=== PATIENT | male | born 1970 | race Caucasian/White ===

== ENCOUNTER 2017-08-12 17:01 | Inpatient (IN) | payer OTHER ==
[~2017-08-12] VITALS: Ht 188 cm; Wt 87.6 kg
[2017-08-12 17:06] VITALS: BP 155/101; PULSE 91; RESP 14; TEMP 98.5; O2SAT 97
[2017-08-12] MEDS ORDERED: VANCOMYCIN INJ 1,000 MG in SODIUM CHLOR 0.9% 250 ML INJ 250 ML IV ONE (17:45)
[2017-08-12] MEDS ORDERED: PIPERACIL-TAZO 3.375 GM PREMIX 50 ML IV ONE (17:45)
[2017-08-12] MEDS ORDERED: CETI10TA71 PO (18:05)
[2017-08-12] MEDS ORDERED: CETI10 (18:05)
--- NOTE | 2017-08-12 18:12 | PD ---
HPI Chief Complaint: Skin Problem Time Seen by Provider: 17:30 Travel History International Travel<30 days: No Contact w/Intl Traveler<30days: No Traveled to known affect area: No History of Present Illness HPI 46-year-old male that presents to the ED for evaluation of infection to his right foot. Patient was seen by his pattern layout worker Dr. Dias who recommended that patient comes here to get admitted for IV antibiotics, MRI and possible surgical options. Patient apparently had a joint replacement on the right second toe last year by the same doctor. Apparently per patient he was doing fine when his wound that he is an open up. Per patient he is to follow with Dr. Dias and he has been noticing redness and purulence coming from the wound. Dr. Dias saw him today and was very concerned and wanted him to come here to get admitted. Patient comes in actually with a prescription from Dr. Dias stating that this once the patient admitted to medicine and started on IV antibiotics as well as labs and MRI with a consult to her. Patient himself denies any other medical issues. No history of diabetes or immunosuppression. No injuries or trauma. No antibiotics have been started. Per patient himself he did not want to come but Dr. Dias insisted. Patient states that his pain is 2 out of 10. No fevers chills or sweats. No other medical issues. PFSH Social History Tobacco Use: No Allergies-Medications (Allergen,Severity, Reaction): Coded Allergies: No Known Allergies (Unverified , 08/12/17) Reported Meds & Prescriptions Reported Meds & Active Scripts Active Reported All Day Allergy (Cetirizine HCl) 10 Mg Tab 10 Mg PO DAILY Review of Systems Except as stated in HPI: all other systems reviewed are Neg Physical Exam Narrative GENERAL: SKIN: Warm and dry. HEAD: Atraumatic. Normocephalic. EYES: Pupils equal and round. No scleral icterus. No injection or drainage. ENT: No nasal bleeding or discharge. Mucous membranes pink and moist. Tongue is midline. No uvula deviation. NECK: Trachea midline. No JVD. CARDIOVASCULAR: Regular rate and rhythm. No murmurs, S3, S4. RESPIRATORY: No accessory muscle use. Clear to auscultation. Breath sounds equal bilaterally. GASTROINTESTINAL: Abdomen soft, non-tender, nondistended. Hepatic and splenic margins not palpable. MUSCULOSKELETAL: Extremities without clubbing, cyanosis, or edema. No obvious deformities. Full range of motion of the upper and lower extremities bilaterally. 2+ pulses bilaterally. Patient does have what appears to be a open wound to the dorsal aspect of the right second metacarpal area. Purulence noted. Erythematous. Bone is seen. Nontender. NEUROLOGICAL: Awake and alert. No obvious cranial nerve deficits. Motor grossly within normal limits. Five out of 5 muscle strength in the arms and legs. Normal speech. PSYCHIATRIC: Appropriate mood and affect; insight and judgment normal. Data Data Last Documented VS Vital Signs Date Time Temp Pulse Resp B/P (MAP) Pulse Ox O2 Delivery O2 Flow Rate FiO2 08/12/17 19:15 85 16 145/84 (104) 97 Room Air 08/12/17 17:06 98.5 Orders Orders Complete Blood Count With Diff (08/12/17 17:37) Basic Metabolic Panel (Bmp) (08/12/17 17:37) Prothrombin Time / Inr (Pt) (08/12/17 17:37) Act Partial Throm Time (Ptt) (08/12/17 17:37) Blood Culture (08/12/17 17:37) C-Reactive Protein (Crp) (08/12/17 17:37) Westergren Sedimentation Rate (08/12/17 17:37) Magnesium (Mg) (08/12/17 17:37) Wound Culture And Gram Stain (08/12/17 17:37) Iv Access Insert/Monitor (08/12/17 17:37) Piperacil-Tazo 3.375 Gm Premix (Zosyn 3. (08/12/17 17:45) Vancomycin Inj (Vancomycin Inj) (08/12/17 17:45) Admit Order (Ed Use Only) (08/12/17 19:45) Mri Foot W&W/O Contrast (08/12/17 ) Labs Laboratory Tests Test 08/12/17 18:10 08/12/17 18:48 Erythrocyte Sedimentation Rate 7 mm/hr White Blood Count 11.9 TH/MM3 Red Blood Count 5.18 MIL/MM3 Hemoglobin 15.8 GM/DL Hematocrit 46.0 % Mean Corpuscular Volume 88.8 FL Mean Corpuscular Hemoglobin 30.5 PG Mean Corpuscular Hemoglobin Concent 34.3 % Red Cell Distribution Width 13.6 % Platelet Count 168 TH/MM3 Mean Platelet Volume 9.8 FL Neutrophils (%) (Auto) 74.8 % Lymphocytes (%) (Auto) 16.9 % Monocytes (%) (Auto) 7.2 % Eosinophils (%) (Auto) 0.6 % Basophils (%) (Auto) 0.5 % Neutrophils # (Auto) 8.9 TH/MM3 Lymphocytes # (Auto) 2.0 TH/MM3 Monocytes # (Auto) 0.9 TH/MM3 Eosinophils # (Auto) 0.1 TH/MM3 Basophils # (Auto) 0.1 TH/MM3 CBC Comment DIFF FINAL Differential Comment Prothrombin Time 10.7 SEC Prothromb Time International Ratio 1.1 RATIO Activated Partial Thromboplast Time 26.0 SEC Blood Urea Nitrogen 13 MG/DL Creatinine 0.89 MG/DL Random Glucose 93 MG/DL Calcium Level 9.4 MG/DL Magnesium Level 2.2 MG/DL Sodium Level 141 MEQ/L Potassium Level 3.7 MEQ/L Chloride Level 107 MEQ/L Carbon Dioxide Level 25.5 MEQ/L Anion Gap 9 MEQ/L Estimat Glomerular Filtration Rate 91 ML/MIN C-Reactive Protein LESS THAN 0.29 MG/DL MDM Medical Decision Making Medical Screen Exam Complete: Yes Emergency Medical Condition: Yes Medical Record Reviewed: Yes Interpretation(s) CBC & BMP Diagram 08/12/17 18:48 Calcium Level 9.4, Magnesium Level 2.2 Differential Diagnosis Osteomyelitis versus cellulitis versus postsurgical complication Narrative Course 46-year-old male that presents to the ED for evaluation of infection to his right foot. Patient was properly examined and was found to have signs and symptoms consistent with osteomyelitis. Patient was sent here for admission as patient does have surgery and likely need the joint artifact removed. Labs and imaging were ordered by me. Patient was started on IV antibiotics. Patient understands reasons to be admitted. Case was discussed with the residents who agreed to admission. Patient was admitted. Diagnosis Primary Impression: Osteomyelitis Qualified Codes: M86.9 - Osteomyelitis, unspecified Admitting Information Admitting Physician Requests: Admit Monster Colvin Aug 12, 2017 18:12
[2017-08-12 18:56] LABS: AUTOMATED NEUTROPHIL # 8.9 TH/MM3 (1.8-7.7); BASOPHIL # 0.1 TH/MM3 (0-0.2); BASOPHIL % 0.5 % (0.0-2.0); EOSINOPHIL # 0.1 TH/MM3 (0-0.4); EOSINOPHIL % 0.6 % (0.0-4.0); HEMOGLOBIN 15.8 GM/DL (13.0-17.0); LYMPH % 16.9 % (9.0-44.0); MEAN CELL VOLUME 88.8 FL (80.0-100.0); MEAN CORPUSCULAR HEMOGLOBIN 30.5 PG (27.0-34.0); MEAN CORPUSCULAR HGB CONC 34.3 % (32.0-36.0); MEAN PLATELET VOLUME 9.8 FL (7.0-11.0); MONO % 7.2 % (0.0-8.0); MONOCYTE # 0.9 TH/MM3 (0-0.9); NEUT % 74.8 % (16.0-70.0); PLATELET COUNT 168 TH/MM3 (150-450); RED BLOOD COUNT 5.18 MIL/MM3 (4.50-5.90); RED CELL DISTRIBUTION WIDTH 13.6 % (11.6-17.2); WHITE BLOOD COUNT 11.9 TH/MM3 (4.0-11.0)
[2017-08-12 19:15] VITALS: BP 145/84; PULSE 85; RESP 16; O2SAT 97
[2017-08-12 19:15] LABS: INTERNATIONAL NORMALIZED RATIO 1.1 RATIO; PROTHROMBIN TIME - PATIENT 10.7 SEC (9.8-11.6)
[2017-08-12 19:19] LABS: BICARBONATE 25.5 MEQ/L (21.0-32.0); BLOOD UREA NITROGEN 13 MG/DL (7-18); C-REACTIVE PROTEIN LESS THAN 0.29 MG/DL (0.00-0.30); CALCIUM 9.4 MG/DL (8.5-10.1); CHLORIDE 107 MEQ/L (98-107); CREATININE 0.89 MG/DL (0.60-1.30); GLOMERULAR FILTRATION RATE 91 ML/MIN (>89); GLUCOSE,RANDOM 93 MG/DL (74-106); MAGNESIUM 2.2 MG/DL (1.5-2.5); SODIUM (NA) 141 MEQ/L (136-145)
[2017-08-12 20:00] VITALS: BP 131/88; PULSE 72; RESP 18; TEMP 95.9; O2SAT 97
[2017-08-12] MEDS ORDERED: GADODIAMIDE PF 287 MG/ML 5 ML VIAL (for RAD MRI) IV PUSH ONE (20:12)
[2017-08-12] MEDS ORDERED: CETIRIZINE HCL 10 MG TAB PO ONE (20:30)
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
--- NOTE | 2017-08-12 20:49 | RADRPT ---
EXAM DATE/TIME: 08/12/2017 19:46 [facility] COMPARISON: No previous studies available for comparison. INDICATIONS : Osteomyelitis. Non-healing wound anterior surface of right foot. CONTRAST: 19 cc Omniscan (gadodiamide) IV MEDICAL HISTORY : None. SURGICAL HISTORY : Right foot, second digit. Hernia. Right leg. Left bicep tendon. Jaw. ENCOUNTER: Subsequent ACUITY: 1 day PAIN SCORE: 3/10 LOCATION: Right foot TECHNIQUE: Multiplanar, multisequence MRI examination was performed without contrast and after the intravenous a dministration of gadolinium. FINDINGS: There is no plain film correlation. There appears to be a second phalangeal joint. There is an ulcer on the dorsum of the foot overlying the prosthesis. There is surrounding edema and soft tissue enhanc ement characteristic of a cellulitis. There is a mild marrow edema and enhancement adjacent to the pr oximal aspect of the prosthesis at the second metatarsal shaft and in the proximal phalanx of the sec ond toe. No other marrow signal abnormalities are identified within the foot. CONCLUSION: 1. Postoperative placement of prosthesis across the second metatarsophalangeal joint. There is an ulc eration on the dorsum of the foot overlying the prosthesis and there is fairly extensive cellulitis s urrounding the second toe and second metatarsal. There are focal marrow signal abnormalities adjacent to the proximal and distal aspect of the prosthesis. It is unclear if this is related to postsurgica l changes or early osteomyelitis. Baudilio Carrillo MD on August 12, 2017 at 20:42 Board Certified Radiologist. This report was verified electronically.
[2017-08-12] MEDS ORDERED: LACTULOSE SYRUP 20 GM/30 ML CUP PO PRN (21:30)
[2017-08-12] MEDS ORDERED: MAGNESIUM HYDROXIDE SUSP 30 ML CUP PO PRN (21:30)
[2017-08-12] MEDS ORDERED: SENNOSIDES 8.6 MG TAB PO PRN (21:30)
[2017-08-12] MEDS ORDERED: BISACODYL 10 MG SUPP RECTAL PRN (21:30)
[2017-08-12] MEDS ORDERED: NALOXONE HCL 0.4 MG/ML AMP IV PUSH PRN (21:30)
[2017-08-12] MEDS ORDERED: SODIUM CHLORIDE 0.9% FLUSH 10 ML FLUSH IV FLUSH PRN (21:30)
[2017-08-12] MEDS: CETIRIZINE HCL 10 MG TAB PO SCH (21:45)
[2017-08-12] MEDS: SODIUM CHLOR 0.9% 1000 ML INJ 1,000 ML IV SCH (23:23)
[2017-08-13] VITALS: BP 135/87; PULSE 70; RESP 18; TEMP 96.5; O2SAT 96
[2017-08-13] MEDS: SODIUM CHLOR 0.9% 1000 ML INJ 1,000 ML IV SCH (04:53)
[2017-08-13 06:41] LABS: AUTOMATED NEUTROPHIL # 4.3 TH/MM3 (1.8-7.7); BASOPHIL # 0.1 TH/MM3 (0-0.2); BASOPHIL % 0.9 % (0.0-2.0); EOSINOPHIL # 0.1 TH/MM3 (0-0.4); EOSINOPHIL % 1.8 % (0.0-4.0); HEMATOCRIT 41.6 % (39.0-51.0); HEMOGLOBIN 14.2 GM/DL (13.0-17.0); LYMPH % 27.3 % (9.0-44.0); LYMPHOCYTE # 1.9 TH/MM3 (1.0-4.8); MEAN CELL VOLUME 88.8 FL (80.0-100.0); MEAN CORPUSCULAR HEMOGLOBIN 30.4 PG (27.0-34.0); MEAN CORPUSCULAR HGB CONC 34.2 % (32.0-36.0); MEAN PLATELET VOLUME 9.6 FL (7.0-11.0); MONO % 8.3 % (0.0-8.0); MONOCYTE # 0.6 TH/MM3 (0-0.9); NEUT % 61.7 % (16.0-70.0); PLATELET COUNT 149 TH/MM3 (150-450); RED BLOOD COUNT 4.69 MIL/MM3 (4.50-5.90); RED CELL DISTRIBUTION WIDTH 13.6 % (11.6-17.2); WHITE BLOOD COUNT 6.9 TH/MM3 (4.0-11.0)
[2017-08-13 07:00] LABS: BICARBONATE 24.9 MEQ/L (21.0-32.0); BLOOD UREA NITROGEN 12 MG/DL (7-18); C-REACTIVE PROTEIN LESS THAN 0.29 MG/DL (0.00-0.30); CALCIUM 8.6 MG/DL (8.5-10.1); CHLORIDE 109 MEQ/L (98-107); CREATININE 0.85 MG/DL (0.60-1.30); GLOMERULAR FILTRATION RATE 96 ML/MIN (>89); GLUCOSE,RANDOM 93 MG/DL (74-106); SODIUM (NA) 141 MEQ/L (136-145)
[2017-08-13 08:00] VITALS: BP 131/86; PULSE 72; RESP 18; TEMP 98.4; O2SAT 95
[2017-08-13] MEDS: CETIRIZINE HCL 10 MG TAB PO SCH (08:27)
[2017-08-13] MEDS: SODIUM CHLORIDE 0.9% FLUSH 10 ML FLUSH IV FLUSH SCH ×2 (08:27→20:14)
[2017-08-13] MEDS ORDERED: Vancomycin Consult Pharmacy 1 EA OTHER SCH (09:45)
[2017-08-13] MEDS: CEFEPIME INJ 2,000 MG in SODIUM CHLORIDE 0.9% INJ 100 ML IV SCH ×2 (11:17→22:10)
--- NOTE | 2017-08-13 11:58 | HHI.FPPN ---
Subjective Remarks No acute issues overnight. Vitals are stable, patient remains afebrile. He denies any chest pain, shortness of breath, fever, chills, nausea, or vomiting. He has started having an upset stomach and diarrhea since starting the antibiotics. He notes that he is scheduled for surgery tomorrow. (Liliane Schaefer MD, R3) Objective Vitals Vital Signs Date Time Temp Pulse Resp B/P (MAP) Pulse Ox O2 Delivery O2 Flow Rate FiO2 08/13/17 08:00 98.4 72 18 131/86 (101) 95 08/13/17 00:00 96.5 70 18 135/87 (103) 96 08/12/17 22:06 08/12/17 20:00 95.9 72 18 131/88 (102) 97 08/12/17 19:15 85 16 145/84 (104) 97 Room Air 08/12/17 17:06 98.5 91 14 155/101 (119) 97 Room Air I/O 08/12/17 08/12/17 08/12/17 08/13/17 08/13/17 08/13/17 07:00 15:00 23:00 07:00 15:00 23:00 Intake Total 890 ml 1000 ml Balance 890 ml 1000 ml Intake Oral 590 ml 0 ml IV Total 300 ml 1000 ml # Voids 0 # Bowel Movements 0 (Liliane Schaefer MD, R3) Result Diagram: 08/13/17 0605 08/13/17 0605 Imaging Last Impressions Foot MRI 08/12/17 0000 Signed Impressions: Service Date/Time: Saturday, August 12, 2017 19:46 - CONCLUSION: 1. Postoperative placement of prosthesis across the second metatarsophalangeal joint. There is an ulceration on the dorsum of the foot overlying the prosthesis and there is fairly extensive cellulitis surrounding the second toe and second metatarsal. There are focal marrow signal abnormalities adjacent to the proximal and distal aspect of the prosthesis. It is unclear if this is related to postsurgical changes or early osteomyelitis. Baudilio Carrillo MD Objective Remarks GENERAL: This is a well-nourished, well-developed patient, in no apparent distress. SKIN: No rashes, Cool and dry. Discoloration along medial aspect left leg, chronic per patient HEAD: Atraumatic. Normocephalic. No temporal or scalp tenderness. EYES: Pupils equal round and reactive. Extraocular motions intact. No scleral icterus. No injection or drainage. ENT: Nose without bleeding, purulent drainage or septal hematoma. Throat without erythema, tonsillar hypertrophy or exudate. Uvula midline. Airway patent. NECK: Trachea midline. No JVD or lymphadenopathy. Supple, nontender, no meningeal signs. CARDIOVASCULAR: Normal S1-S2 without murmurs, gallops, or rubs. RESPIRATORY: Clear to auscultation. Breath sounds equal bilaterally. No wheezes , rales, or rhonchi. GASTROINTESTINAL: Abdomen soft, non-tender, nondistended. No hepato-splenomegaly , or palpable masses. No guarding. Abdomen with scarring from resendez that patient experiences a kid. MUSCULOSKELETAL: Extremities without clubbing, cyanosis, or edema. No calf tenderness BL. Negative Homans sign bilaterally. Normal sensation of feet BL, slight diminished sensation of second toe on Right foot. +2 DP pulses BL. Deep wound of approximately 2 cm x 1 cm diameter on the dorsum aspect of the foot above second metatarsal of right foot. Whitish yellow pus noted in wound and foul smell from wound appreciated during foot exam. Minimal-localized erythema around wound, no swelling noted. Mild pain to palpation around the wound area. NEUROLOGICAL: Awake and alert. Cranial nerves II through XII intact. Motor and sensory grossly within normal limits. Normal speech. (Liliane Schaefer MD, R3) A/P Assessment and Plan Patient is a 46-year-old male with past medical history arthritis and BL venous insufficiency who presented to the ED due to right foot wound infection. Patient was sent to ED by his career development coordinator, Dr. Dias due to concern for osteomyelitis. Patient admitted for further evaluation and treatment. Discharge Planning Pending surgery by podiatry, likely in the next several days. (Liliane Schaefer MD, R3) Attending Attestation Table rounds with DR Schaefer, Dr Reeves, Dr Aparicio and Dr Resendez were performed this morning A detailed discussion regarding patients admission and hospital course was reviewed with Resident team Patient was seen and examined with team Agree with contents in above note SeeAssessment and Plan (Sony Henderson MD) Problem List: (1) Foot infection ICD Codes: L08.9 - Local infection of the skin and subcutaneous tissue, unspecified Status: Acute Plan: Patient is status post prosthesis replacement of second metatarsal joint of right foot, operation done by Dr. Dias in 03/2017 -On admission patient was found to be afebrile, slightly elevated blood pressures in the 140/80, HR- 85, O2 sat WNL on RA. Patient has not toxic appearing. Slight leukocytosis of 11.9. ESR-7, CRP- less than 0.29. Pain right foot pain 5/10. -s/p Vanc and Zosyn. -MRI of the right foot showed: Ulceration of the dorsum of the foot overlying the prosthesis and extensive cellulitis surrounding the second toe and second metatarsal. Focal marrow signal abnormalities adjacent to the proximal and distal aspect of the prosthesis. Unclear if related to postsurgical changes or early osteomyelitis. 08/12 blood cultures- no growth in 1 day -Podiatry referral to Dr. Dias- plan for surgery tomorrow -NPO after midnight due to surgical intervention tomorrow -f/u blood cx and wound cx -Vancomycin and Cefepime to cover for infection (started 08/13) - Consult infectious disease (2) Nutrition, metabolism, and development symptoms ICD Codes: R63.8 - Other symptoms and signs concerning food and fluid intake Plan: Fluids: DC fluids while tolerating PO Electrolytes: WNL, replete as needed Nutrition: NPO after midnight DVT ppx : SCDs (Liliane Schaefer MD, R3) Liliane Schaefer MD, R3 Aug 13, 2017 11:58 Sony Henderson MD Aug 13, 2017 16:31
[2017-08-13 12:00] VITALS: BP 150/99; PULSE 76; RESP 17; TEMP 97.9; O2SAT 97
[2017-08-13] MEDS: VANCOMYCIN INJ 1,500 MG in SODIUM CHLORID 0.9% 500 ML INJ 500 ML IV SCH ×2 (12:33→23:39)
--- NOTE | 2017-08-13 15:38 | MB ---
cc: LORIN ESPINOZA DATE OF CONSULTATION: 08/13/2017. REASON FOR CONSULTATION: Right second MPJ postoperative infection. HISTORY OF PRESENT ILLNESS: Mr. West is a 46-year-old male patient well-known to me. He had a Silastic implant placed in the second MPJ for a painful arthritis. He also had a hammertoe correction at that time. The patient had a very small surgical dehiscence at the incision site in May. He cancelled multiple appointments and did not follow up in my office for approximately 6 weeks despite attempted phone calls and re-appointments. When the patient was seen in my office yesterday, the previous small digit site was now a large gaping wound with purulent drainage and the Silastic implant was visible through the wound. Despite a lack of cellulitis, I had extreme concern for possible osteomyelitis and an urgency to remove the implant. The patient was advised to present to the emergency room with written instructions from my office that day for admission. PAST MEDICAL HISTORY: His past medical history includes: 1. Bilateral venous insufficiency. 2. Osteoarthritis. 3. Diabetes mellitus. PAST SURGICAL HISTORY: 1. Left biceps tendon repair in June of this year by Dr. Colvin. 2. An unknown right ankle surgery. MEDICATIONS: Please see the list. ALLERGIES: NO KNOWN DRUG ALLERGIES. FAMILY HISTORY: Noncontributory. SOCIAL HISTORY: The patient lives at home with family. He quit smoking 15 years ago. Drinks socially. Smokes marijuana occasionally. Denies any other illicit drug abuse. PHYSICAL EXAMINATION: On physical exam, the patient has palpable dorsalis pedis and posterior tibial pulses. Capillary fill time is less than 3 seconds. Gross sensation is intact but appears to be diminished. The dorsal aspect of the right second MPJ with a full thickness ulceration of 1 cm x 0.8 cm x 0.75. There is seropurulent drainage with malodor from the wound. The wound is partially granular and partially open to the level of the implant. No erythema surrounding the ulceration. Tenderness noted with evaluation. ASSESSMENT AND PLAN: 1. Presumably infected hardware right second MPJ. - NPO after midnight. - Plan for surgical explantation of the implant, bone biopsies and insertion of antibiotic beads at surgery tomorrow. - Regardless of biopsy results given the extent of the patient's erosion at the surgical site, a PICC line would likely be valuable for shelter IV antibiotics of two to six weeks. Thank you for the continued care of this patient. Lorin NULL/RONALDO /1:00 PM /3:25 PM MTDNahed
[2017-08-13 16:00] VITALS: BP 146/96; PULSE 82; RESP 18; TEMP 97.5; O2SAT 98
[2017-08-13] MEDS ORDERED: VANCOMYCIN INJ 1,000 MG in SODIUM CHLOR 0.9% 250 ML INJ 250 ML IV SCH (17:45)
--- NOTE | 2017-08-13 19:40 | HHI.PR ---
Addendum to Inpatient Note Additional Information Pt seen around today 16 00 full note to Alexandra Espinoza MD Aug 13, 2017 19:40
--- NOTE | 2017-08-13 19:40 | PD.ID.CON ---
History of Present Illness Service ID Consult Requested By Dr Sotelo Reason for Consult R foot osteo Primary Care Physician Wilson Aparicio M.D. Diagnoses: History of Present Illness 46 yo with R foot prosthetic 2nd metatarsal joint implanted 4 months ago developped chronic ulceration that never healed Sp 2 short course of iral abx No fever, nomleukocytosis, no PVD or DM MRI cw osteomyelitis For prostesis removal, debricement tomorrow co some loose BMs Review of Systems Gastrointestinal: COMPLAINS OF: Diarrhea Except as stated in HPI: all other systems reviewed are Neg Past Family Social History Allergies: Coded Allergies: No Known Allergies (Unverified , 08/12/17) Active Ordered Medications Medications where reviewed in EMR Antibiotics Include: vanco cefepime Physical Exam Vital Signs Vital Signs Date Time Temp Pulse Resp B/P (MAP) Pulse Ox O2 Delivery O2 Flow Rate FiO2 08/13/17 16:00 97.5 82 18 146/96 (113) 98 08/13/17 12:00 97.9 76 17 150/99 (116) 97 08/13/17 08:00 98.4 72 18 131/86 (101) 95 08/13/17 00:00 96.5 70 18 135/87 (103) 96 08/12/17 22:06 08/12/17 20:00 95.9 72 18 131/88 (102) 97 Physical Exam CONSTITUTIONAL/GENERAL: This is an adequately nourished patient, in no apparent distress. TUBES/LINES/DRAINS: SKIN: No jaundice, rashes, or lesions. Skin temperature appropriate. Not diaphoretic. HEAD: Atraumatic. Normocephalic. EYES: Pupils equal and round and reactive. Extraocular motions intact. No scleral icterus. No injection or drainage. Fundi not examined. ENT: Hearing grossly normal. Nose without bleeding or purulent drainage. Throat without visible erythema, exudates, masses, or lesions. N CARDIOVASCULAR: Regular rate and rhythm without murmurs, gallops, or rubs. No JVD. Peripheral pulses symmetric. RESPIRATORY/CHEST: Symmetric, unlabored respirations. Clear to auscultation. Breath sounds equal bilaterally. No wheezes, rales, or rhonchi. GASTROINTESTINAL: Abdomen soft, non-tender, nondistended. No hepato-splenomegaly , or palpable masses. No guarding. Bowel sounds present. GENITOURINARY: Without palpable bladder distension MUSCULOSKELETAL: Extremities without clubbing, cyanosis, or edema. No joint tenderness or effusion noted. No calf tenderness. No mottling or clubbing. STATUS LOCALIS: open deep wound with esposed tendon, joint in the bed with odorless serosangious d/c and mild surrounding erythema NEUROLOGICAL: Awake and alert. Motor and sensory grossly within normal limits. Follows commands. Cognitively sharp. Moves all extremities. PSYCHIATRIC: No obvious anxiety/depression. no apparent hallucinations or other psychotic thought process. Laboratory Laboratory Tests Test 08/13/17 06:05 White Blood Count 6.9 Red Blood Count 4.69 Hemoglobin 14.2 Hematocrit 41.6 Mean Corpuscular Volume 88.8 Mean Corpuscular Hemoglobin 30.4 Mean Corpuscular Hemoglobin Concent 34.2 Red Cell Distribution Width 13.6 Platelet Count 149 Mean Platelet Volume 9.6 Neutrophils (%) (Auto) 61.7 Lymphocytes (%) (Auto) 27.3 Monocytes (%) (Auto) 8.3 Eosinophils (%) (Auto) 1.8 Basophils (%) (Auto) 0.9 Neutrophils # (Auto) 4.3 Lymphocytes # (Auto) 1.9 Monocytes # (Auto) 0.6 Eosinophils # (Auto) 0.1 Basophils # (Auto) 0.1 CBC Comment DIFF FINAL Differential Comment Blood Urea Nitrogen 12 Creatinine 0.85 Random Glucose 93 Calcium Level 8.6 Sodium Level 141 Potassium Level 3.9 Chloride Level 109 Carbon Dioxide Level 24.9 Anion Gap 7 Estimat Glomerular Filtration Rate 96 C-Reactive Protein LESS THAN 0.29 Date/Time Source Procedure Growth Status 08/12/17 18:10 Blood Peripheral Aerobic Blood Culture - Preliminary NO GROWTH IN 1 DAY Resulted 08/12/17 18:10 Blood Peripheral Anaerobic Blood Culture - Preliminary NO GROWTH IN 1 DAY Resulted 08/12/17 18:11 Wound Foot Gram Stain - Final Resulted 08/12/17 18:11 Wound Culture - Preliminary Gram Negative Toni Resulted Result Diagram: 08/13/1705 08/13/1705 Imaging Last Impressions Foot MRI 08/12/17 0000 Signed Impressions: Service Date/Time: Saturday, August 12, 2017 19:46 - CONCLUSION: 1. Postoperative placement of prosthesis across the second metatarsophalangeal joint. There is an ulceration on the dorsum of the foot overlying the prosthesis and there is fairly extensive cellulitis surrounding the second toe and second metatarsal. There are focal marrow signal abnormalities adjacent to the proximal and distal aspect of the prosthesis. It is unclear if this is related to postsurgical changes or early osteomyelitis. Baudilio Carrillo MD Assessment and Plan Assessment and Plan Prosthetic joint infection, osteomyelitis R foot, aw 2nd MT joint prosthesis - growing GNB REC's: cont current abx will folow path, clx - add AFB to op clx Alexandra James MD Aug 13, 2017 19:40
[2017-08-13 20:31] VITALS: BP 130/73; PULSE 82; RESP 20; TEMP 97.4; O2SAT 98
[2017-08-13] MEDS ORDERED: LACTATED RINGER'S 1000 ML IV PRN (23:30)
[2017-08-14 00:15] VITALS: BP 122/79; PULSE 78; RESP 20; TEMP 97.4; O2SAT 98
[2017-08-14] MEDS: CETIRIZINE HCL 10 MG TAB PO SCH (07:26)
[2017-08-14] MEDS: SODIUM CHLORIDE 0.9% FLUSH 10 ML FLUSH IV FLUSH SCH ×2 (07:26→19:25)
[2017-08-14] MEDS ORDERED: BUPIVACAINE HCL PF 0.5% 30 ML VIAL ONE (07:26)
[2017-08-14] MEDS ORDERED: TOBRAMYCIN 1200 MG VIAL (for ortho/sterile core) OTHER ONE (07:47)
[2017-08-14] MEDS ORDERED: GENTAMICIN SULFATE 80 MG/2 ML VIAL ONE (07:49)
[2017-08-14] MEDS ORDERED: VANCOMYCIN HCL 1000 MG VIAL ONE (07:49)
[2017-08-14 08:00] VITALS: BP 132/87; PULSE 72; RESP 18; TEMP 98.4; O2SAT 97
[2017-08-14] MEDS ORDERED: MORPHINE SULFATE 2 MG/ML INJ IV PUSH PRN (09:00)
[2017-08-14] MEDS ORDERED: MIDAZOLAM HCL 2 MG/2 ML VIAL ONE (09:23)
--- NOTE | 2017-08-14 09:44 | RADRPT ---
EXAM DATE/TIME: 08/14/2017 09:07 [facility] COMPARISON: No previous studies available for comparison. INDICATIONS : Right foot post op. Osteomyelitis MEDICAL HISTORY : Osteomyelitis SURGICAL HISTORY : Right foot, second digit. Hernia. Right leg. Left bicep tendon. Jaw. ENCOUNTER: Initial ACUITY: 1 day PAIN SCORE: Non-responsive. LOCATION: Right foot. FINDINGS: There are postsurgical changes in the 2nd digit proximal phalanx and distal 2nd metatarsus with multi ple radiopaque beads and some periosteal reaction. Alignment is maintained. The remainder of the os seous structures of the foot are intact and stop lateral hardware. CONCLUSION: Postsurgical changes in the 2nd digit. Mark Kaba MD on August 14, 2017 at 9:40 Board Certified Radiologist. This report was verified electronically.
[2017-08-14] MEDS ORDERED: DO NOT ADM ANY ANTICOAGULANT DRUGS PRN (09:45)
[2017-08-14 10:30] LABS: AUTOMATED NEUTROPHIL # 5.2 TH/MM3 (1.8-7.7); BASOPHIL # 0.1 TH/MM3 (0-0.2); BASOPHIL % 0.9 % (0.0-2.0); EOSINOPHIL # 0.1 TH/MM3 (0-0.4); EOSINOPHIL % 1.1 % (0.0-4.0); HEMATOCRIT 43.1 % (39.0-51.0); LYMPH % 16.1 % (9.0-44.0); LYMPHOCYTE # 1.1 TH/MM3 (1.0-4.8); MEAN CELL VOLUME 88.6 FL (80.0-100.0); MEAN CORPUSCULAR HEMOGLOBIN 30.8 PG (27.0-34.0); MEAN CORPUSCULAR HGB CONC 34.7 % (32.0-36.0); MEAN PLATELET VOLUME 9.6 FL (7.0-11.0); MONO % 5.4 % (0.0-8.0); MONOCYTE # 0.4 TH/MM3 (0-0.9); NEUT % 76.5 % (16.0-70.0); PLATELET COUNT 148 TH/MM3 (150-450); RED BLOOD COUNT 4.87 MIL/MM3 (4.50-5.90); RED CELL DISTRIBUTION WIDTH 13.4 % (11.6-17.2); WHITE BLOOD COUNT 6.8 TH/MM3 (4.0-11.0)
[2017-08-14] MEDS: CEFEPIME INJ 2,000 MG in SODIUM CHLORIDE 0.9% INJ 100 ML IV SCH ×2 (10:32→21:33)
--- NOTE | 2017-08-14 10:41 | HHI.FPPN ---
Subjective Remarks Patient seen and examined at bedside after her operation this morning. Patient states his pain is well controlled on current medications. No acute events overnight. Denies chest pain/shortness of breath/dizziness. Denies fever/ chills. Objective Vitals Vital Signs Date Time Temp Pulse Resp B/P (MAP) Pulse Ox O2 Delivery O2 Flow Rate FiO2 08/14/17 09:25 97.8 80 14 143/90 (107) 98 Room Air 08/14/17 09:15 65 14 115/66 (82) 93 Room Air 08/14/17 09:00 97.8 60 14 117/66 (83) 93 Nasal Cannula 2 08/14/17 08:00 98.4 72 18 132/87 (102) 97 08/14/17 00:15 97.4 78 20 122/79 (93) 98 08/13/17 20:31 97.4 82 20 130/73 (92) 98 08/13/17 16:00 97.5 82 18 146/96 (113) 98 08/13/17 12:00 97.9 76 17 150/99 (116) 97 I/O 08/13/17 08/13/17 08/13/17 08/14/17 08/14/17 08/14/17 07:00 15:00 23:00 07:00 15:00 23:00 Intake Total 1000 ml 615 ml 480 ml Balance 1000 ml 615 ml 480 ml Intake Oral 0 ml 480 ml IV Total 1000 ml 615 ml # Voids 0 4 3 # Bowel Movements 0 0 Result Diagram: 08/14/17 0950 08/13/17 0605 Objective Remarks GENERAL: This is a well-nourished, well-developed patient, in no apparent distress. SKIN: No rashes, Cool and dry. Discoloration along medial aspect left leg, chronic per patient HEAD: Atraumatic. Normocephalic. No temporal or scalp tenderness. EYES: Pupils equal round and reactive. Extraocular motions intact. No scleral icterus. No injection or drainage. ENT: Nose without bleeding, purulent drainage or septal hematoma. Throat without erythema, tonsillar hypertrophy or exudate. Uvula midline. Airway patent. NECK: Trachea midline. No JVD or lymphadenopathy. Supple, nontender, no meningeal signs. CARDIOVASCULAR: Normal S1-S2 without murmurs, gallops, or rubs. RESPIRATORY: Clear to auscultation. Breath sounds equal bilaterally. No wheezes , rales, or rhonchi. GASTROINTESTINAL: Abdomen soft, non-tender, nondistended. No hepato-splenomegaly , or palpable masses. No guarding. Abdomen with scarring from resendez that patient experiences a kid. MUSCULOSKELETAL: Extremities without clubbing, cyanosis, or edema. No calf tenderness BL. Negative Homans sign bilaterally. Large cast over right foot. Patient is able to wiggle his toes with 6 out of 10 pain. Sensation intact. NEUROLOGICAL: Awake and alert. Cranial nerves II through XII intact. Motor and sensory grossly within normal limits. Normal speech. A/P Assessment and Plan Patient is a 46-year-old male with past medical history arthritis and BL venous insufficiency who presented to the ED due to right foot wound infection. Postop day #0 from right foot osteomyelitis joint removal Discharge Planning Likely to stay per podiatry, need to DC with PICC line Problem List: (1) Foot infection ICD Codes: L08.9 - Local infection of the skin and subcutaneous tissue, unspecified Status: Acute Plan: POD#0 , status post prosthesis removal of second metatarsal joint of right foot with bone biopsy and insertion of antibiotic., operation done by Dr. Dias -On admission patient was found to be afebrile, slightly elevated blood pressures in the 140/80, HR- 85, O2 sat WNL on RA. Patient has not toxic appearing. Slight leukocytosis of 11.9. ESR-7, CRP- less than 0.29. Pain right foot pain 5/10. -s/p Vanc and Zosyn. Cont Vanc Cont Cefepime 1g IV q12h Blood cultures: No growth 1 day Wound cultures: Gram-negative bacteria pansensitive bacteria Appreciate podiatry recommendations Appreciate infectious disease recommendation MRI of the right foot showed: Ulceration of the dorsum of the foot overlying the prosthesis and extensive cellulitis surrounding the second toe and second metatarsal. Focal marrow signal abnormalities adjacent to the proximal and distal aspect of the prosthesis. Unclear if related to postsurgical changes or early osteomyelitis. (2) Nutrition, metabolism, and development symptoms ICD Codes: R63.8 - Other symptoms and signs concerning food and fluid intake Plan: Fluids: DC fluids while tolerating PO Electrolytes: WNL, replete as needed Nutrition: NPO after midnight DVT ppx : Suzanna Keller MD R2 Aug 14, 2017 10:40
[2017-08-14] MEDS: VANCOMYCIN INJ 1,500 MG in SODIUM CHLORID 0.9% 500 ML INJ 500 ML IV SCH (11:16)
[2017-08-14 12:00] VITALS: BP 150/95; PULSE 77; RESP 19; TEMP 97.8; O2SAT 95
[2017-08-14] MEDS ORDERED: PROPOFOL 200 MG/20 ML AMP IV ONE (12:00)
[2017-08-14] MEDS ORDERED: LIDOCAINE HCL 1% PF 5 ML SYRINGE OTHER ONE (12:00)
[2017-08-14] MEDS ORDERED: DEXAMETHASONE SOD PHOS 4 MG/ML VIAL IV ONE (12:00)
[2017-08-14] MEDS ORDERED: ONDANSETRON HCL 4 MG/2 ML VIAL IV ONE (12:00)
[2017-08-14] MEDS: ACETAMINOPHEN/HYDROcodone 325 MG/5 MG TAB PO PRN (12:17)
[2017-08-14 20:00] VITALS: BP 140/93; PULSE 79; RESP 18; TEMP 97.5; O2SAT 97
[2017-08-15] MEDS: VANCOMYCIN INJ 1,500 MG in SODIUM CHLORID 0.9% 500 ML INJ 500 ML IV SCH ×2 (00:12→12:31)
[2017-08-15 00:23] VITALS: BP 137/90; PULSE 80; RESP 20; TEMP 96.8; O2SAT 98
[2017-08-15 08:00] VITALS: BP 140/87; PULSE 77; RESP 20; TEMP 97.4; O2SAT 97
[2017-08-15] MEDS: CETIRIZINE HCL 10 MG TAB PO SCH (08:12)
[2017-08-15] MEDS: SODIUM CHLORIDE 0.9% FLUSH 10 ML FLUSH IV FLUSH SCH ×2 (08:12→22:46)
--- NOTE | 2017-08-15 08:17 | PD.POD ---
Subjective Pain score: 2 Remarks Pain controlled has questions regarding long-term IV antibiotics Past Med/Surg/Social History Social History Smoking Status: Former Smoker Objective Vital Signs Vital Signs Date Time Temp Pulse Resp B/P (MAP) Pulse Ox O2 Delivery O2 Flow Rate FiO2 08/15/17 00:23 96.8 80 20 137/90 (106) 98 08/14/17 20:00 97.5 79 18 140/93 (109) 97 08/14/17 12:00 97.8 77 19 150/95 (113) 95 08/14/17 09:25 97.8 80 14 143/90 (107) 98 Room Air 08/14/17 09:15 65 14 115/66 (82) 93 Room Air 08/14/17 09:00 97.8 60 14 117/66 (83) 93 Nasal Cannula 2 Coded Allergies: No Known Allergies (Unverified , 08/12/17) Medications and IVs Administered Medications Medications (Trade) Dose Ordered Sig/Ron Route PRN Reason Start Time Stop Time Status Last Admin Dose Admin Sodium Chloride (NS Flush) 2 ml UNSCH PRN IV FLUSH FLUSH AFTER USING IV ACCESS 08/12/17 21:30 08/12/17 23:23 Sodium Chloride (NS Flush) 2 ml BID IV FLUSH 08/13/17 09:00 08/14/17 19:25 Cetirizine HCl (ZyrTEC) 10 mg DAILY PO 08/12/17 21:45 08/13/17 08:27 Cefepime HCl 2000 mg/Sodium Chloride 100 ml @ 200 mls/hr Q12H IV 08/13/17 10:00 08/14/17 21:33 Vancomycin HCl 1500 mg/Sodium Chloride 515 ml @ 257.5 mls/ hr Q12H IV 08/13/17 12:00 08/15/17 00:12 Acetaminophen/ Hydrocodone Bitart (Traer 5-325 Mg) 1 tab Q4H PRN PO PAIN SCALE 1 TO 6 08/14/17 09:00 08/14/17 12:17 Other Results PECPRECIOUS #: [id number] PJ: 08/12/171810 STATUS: COMP RECD: 08/12/171847 SUBM DR: Monster Colvin PT ID: Marquita BOX/PROVIDER ID: SOURCE: WOUND COPY TO: NONE PER PT SPDESC: FOOT Stewart,Woodbine Z. MD SPDESC: FOOT UNKNOWN BILL CLIENT: NON-STAFF PROVIDER ADDRESS ORDERED: WOUND CULTURE COMMENTS: Site description: right foot infection QUERIES: Method of Collection: SWAB ACT WKST: GS 08/13/17 #1 WOUNDS 08/13/17 #1 Procedure Result Verified Site GRAM STAIN Final 08/13/17-704 FEW WBC'S HEAVY MIXED PERLA WITH NO PREDOMINANT MORPHOLOGY WOUND CULTURE Final 08/14/17-900 HEAVY GROWTH ESCHERICHIA HERMANNII HEAVY GROWTH NORMAL SKIN PERLA NO ANAEROBES ISOLATED CONTINUED ON NEXT PAGE RUN DATE: 08/14/17 [facility] LAB LIVE PAGE 2 RUN TIME: [address] [address] DOCTOR REPORT PATIENT Patient: GORDY APPLE #[id number] (Continued) Specimen: [id number] Collected: 08/12/17 Received: 08/12/17 (Continued) Procedure Result Verified Site WOUND CULTURE Final (continued) 08/14/17-900 BRIAN Yoon RX --------- --- AMOXICILLIN/K CLAVULANATE <8/4 S PIPERCILLIN/TAZOBACTAM <16 S AMPICILLIN/SULBACTAM <8/4 S CEFAZOLIN <2 S CEFUROXIME <4 S CEFTRIAXONE <1 S CEFTAZIDIME <1 S CEFEPIME <2 S AZTREONAM <4 S ERTAPENEM <0.5 S IMIPENEM <1 S GENTAMICIN <4 S TOBRAMYCIN <4 S TETRACYCLINE <4 S TRIMETH/SULFA <2/38 S LEVOFLOXACIN <2 S WOUND CULTURE Preliminary (changed) 08/13/17-1203 HEAVY GROWTH GRAM NEGATIVE CHRISTINE ID AND ELLEN TO FOLLOW HEAVY GROWTH NORMAL SKIN PERLA Surgical wound cultures and bone biopsy pending Laboratory Tests Test 08/14/17 09:50 White Blood Count 6.8 TH/MM3 Red Blood Count 4.87 MIL/MM3 Hemoglobin 15.0 GM/DL Hematocrit 43.1 % Mean Corpuscular Volume 88.6 FL Mean Corpuscular Hemoglobin 30.8 PG Mean Corpuscular Hemoglobin Concent 34.7 % Red Cell Distribution Width 13.4 % Platelet Count 148 TH/MM3 Mean Platelet Volume 9.6 FL Neutrophils (%) (Auto) 76.5 % Lymphocytes (%) (Auto) 16.1 % Monocytes (%) (Auto) 5.4 % Eosinophils (%) (Auto) 1.1 % Basophils (%) (Auto) 0.9 % Neutrophils # (Auto) 5.2 TH/MM3 Lymphocytes # (Auto) 1.1 TH/MM3 Monocytes # (Auto) 0.4 TH/MM3 Eosinophils # (Auto) 0.1 TH/MM3 Basophils # (Auto) 0.1 TH/MM3 CBC Comment DIFF FINAL Differential Comment Microbiology Date/Time Source Procedure Growth Status 08/12/17 18:10 Blood Peripheral Aerobic Blood Culture - Preliminary NO GROWTH IN 2 DAYS Resulted 08/12/17 18:10 Blood Peripheral Anaerobic Blood Culture - Preliminary NO GROWTH IN 2 DAYS Resulted 08/12/17 17:55 Blood Peripheral Aerobic Blood Culture - Preliminary NO GROWTH IN 2 DAYS Resulted 08/12/17 17:55 Blood Peripheral Anaerobic Blood Culture - Preliminary NO GROWTH IN 2 DAYS Resulted 08/14/17 08:00 Wound Toe Fungal Smear Pending Received 08/14/17 08:00 Wound Toe Fungal Culture Pending Received 08/14/17 08:00 Wound Toe Acid Fast Stain Pending Received 08/14/17 08:00 Wound Toe Mycobacterial Culture Pending Received 08/14/17 08:00 Wound Toe Gram Stain Pending Received 08/14/17 08:00 Wound Toe Wound Culture Pending Received 08/14/17 08:00 Wound Toe Fungal Smear Pending Received 08/14/17 08:00 Wound Toe Fungal Culture Pending Received 08/14/17 08:00 Wound Toe Acid Fast Stain Pending Received 08/14/17 08:00 Wound Toe Mycobacterial Culture Pending Received 08/14/17 08:00 Wound Toe Gram Stain Pending Received 08/14/17 08:00 Wound Toe Wound Culture Pending Received 08/12/17 18:11 Wound Foot Gram Stain - Final Complete 08/12/17 18:11 Wound Culture - Final Escherichia Hermannii Complete Physical Exam General appearance: comfortable Nutritional status: normal Orientation: alert and oriented x3 Respiratory effort: FINDINGS: normal Details Right foot moderate serosanguineous drainage upon removing bandage, second MPJ incision well coapted with sutures intact no purulence, no odor, minimal erythema, good CFT is 2 digit, mild shortening of second digit, sensation intact Assessment & Plan Diagnosis: (1) Osteomyelitis ICD Codes: M86.9 - Osteomyelitis, unspecified Status: Acute (2) Foot infection ICD Codes: L08.9 - Local infection of the skin and subcutaneous tissue, unspecified Status: Acute A/P Status post removal of implant and debridement right second MPJ postop day 1 Bandage changed, awaiting bone biopsy and bone culture, no further surgery planned at this point, awaiting infectious disease recommendations for antibiotic, once antibiotics arranged clear for outpatient follow-up per podiatry with Dr. Dias. Patient is permitted partial weight-bear of the heel , out of bed to chair, bathroom privileges. Problem Qualifiers (1) Osteomyelitis: Qualified Codes: M86.9 - Osteomyelitis, unspecified Devon Kelly DPM Aug 15, 2017 08:17
--- NOTE | 2017-08-15 09:52 | MP ---
cc: DANGELO ESPINOZA DATE OF SURGERY 08/12/[address] Dangelo Espinoza. CHARGING MANIPULATOR Staff provided placement assistant. PREOPERATIVE DIAGNOSIS 1. Right foot infected implant. 2. Right foot nonhealing ulcer. POSTOPERATIVE DIAGNOSIS 1. Right foot explantation of deep implant. 2. Bone biopsy of right second proximal phalanx. 3. Biopsy of right second metatarsal. 4. Secondary closure of ulceration. SPECIMEN Pathology sent includes bone biopsy of the proximal phalanx to pathology and micro, implant to pathology, and bone biopsy of the second metatarsal to pathology and micro. ANESTHESIA General. HEMOSTASIS Pneumatic ankle tourniquet at 250 mmHg. ESTIMATED BLOOD LOSS Zero. INJECTABLES 10 cc of 0.5% Marcaine plain. MATERIALS USED 3-0 Prolene and vancomycin infused antibiotic beads. COMPLICATIONS None. INDICATIONS Mr. West is a patient well-known to me. He had a second metatarsophalangeal joint replacement. He had a small incision site dehiscence, but after missing several appointments due to the flu the small dehiscence site grew into a large wound full-thickness exposing the implant. The decision was made to remove the implant and test the bone to see if infection had reached that level yet or not. The consent was signed. The procedure was explained. No guarantees were given. DETAILS OF PROCEDURE Under mild sedation the patient was brought to the operating room and placed on the operating table in supine position. Following IV sedation a pneumatic ankle tourniquet was applied around the right ankle. The foot was then scrubbed, prepped and draped in the usual aseptic manner. Attention was first to the dorsal aspect of the first metatarsophalangeal joint where there was a 1 cm x 0.9 cm full-thickness ulceration. After debridement of some fibrous tissue the implant was easily identified and removed. A rongeur was used to remove any and all nonviable soft tissue as well as the bone edges on the phalanx and the metatarsal. The area was flushed with copious amounts of sterile saline and using all new clean instrumentation a small biopsy was taken from the proximal phalanx and from the metatarsal. Both specimens were sent to the lab/pathology department for further evaluation. Next, the senior assistant manager on the back table created antibiotic beads with the use of vancomycin powder. The beads were inserted into the canal both metatarsal and the phalanx with a few being placed into the joint space. The wound edges were cut to create healthy clean edges and the wound was closed with minimal tension using 3-0 Prolene. 10 cc of 0.5% Marcaine plain were injected around the incision site in a superficial tissue plane. The pneumatic ankle tourniquet was released. There was a prompt hyperemic response to all digits of the right foot. Sterile dressing of Adaptic, 4x4s, cast padding and a light Deejay bandage were applied. The patient tolerated the procedure and the anesthesia well. He will recover in the PACU for a period of time before being discharged home with written and oral postoperative instructions. Dangelo NULL/JOIE /8:58 AM /9:28 AM MTDNahed
--- NOTE | 2017-08-15 10:10 | HHI.FPPN ---
Subjective Remarks Patient seen and examined this morning. No acute events overnight. Doing well this morning. Pain well controlled. Foot placed in boot. Denies any chest pain, SOB, abdominal pain, leg pain. Objective Vitals Vital Signs Date Time Temp Pulse Resp B/P (MAP) Pulse Ox O2 Delivery O2 Flow Rate FiO2 08/15/17 08:00 97.4 77 20 140/87 (104) 97 08/15/17 00:23 96.8 80 20 137/90 (106) 98 08/14/17 20:00 97.5 79 18 140/93 (109) 97 08/14/17 12:00 97.8 77 19 150/95 (113) 95 I/O 08/14/17 08/14/17 08/14/17 08/15/17 08/15/17 08/15/17 07:00 15:00 23:00 07:00 15:00 23:00 Intake Total 100 ml 755 ml 780 ml 240 ml Balance 100 ml 755 ml 780 ml 240 ml Intake Oral 240 ml 780 ml 240 ml IV Total 100 ml 515 ml # Voids 3 6 4 # Bowel Movements 1 Result Diagram: 08/14/17 0950 08/13/17 0605 Imaging Last Impressions Foot X-Ray 08/14/17 0000 Signed Impressions: Service Date/Time: Monday, August 14, 2017 09:07 - CONCLUSION: Postsurgical changes in the 2nd digit. Mark Kaba MD Foot MRI 08/12/17 0000 Signed Impressions: Service Date/Time: Saturday, August 12, 2017 19:46 - CONCLUSION: 1. Postoperative placement of prosthesis across the second metatarsophalangeal joint. There is an ulceration on the dorsum of the foot overlying the prosthesis and there is fairly extensive cellulitis surrounding the second toe and second metatarsal. There are focal marrow signal abnormalities adjacent to the proximal and distal aspect of the prosthesis. It is unclear if this is related to postsurgical changes or early osteomyelitis. Baudilio Carrillo MD Objective Remarks GENERAL: This is a well-nourished, well-developed patient, in no apparent distress. SKIN: No rashes, Cool and dry. Discoloration along medial aspect left leg, chronic per patient CARDIOVASCULAR: Normal S1-S2 without murmurs, gallops, or rubs. RESPIRATORY: Clear to auscultation. Breath sounds equal bilaterally. No wheezes , rales, or rhonchi. GASTROINTESTINAL: Abdomen soft, non-tender, nondistended. MUSCULOSKELETAL: Extremities without clubbing, cyanosis, or edema. No calf tenderness BL. Right foot bandaged in boot. Patient is able to wiggle his toes with 4-5 out of 10 pain. Sensation intact. NEUROLOGICAL: Awake and alert. Motor and sensory grossly within normal limits. Normal speech. A/P Assessment and Plan Patient is a 46-year-old male with past medical history arthritis and BL venous insufficiency who presented to the ED due to right foot wound infection. Postop day #0 from right foot osteomyelitis joint removal Discharge Planning D/c after ID recs, will likely need PICC line Problem List: (1) Foot infection ICD Codes: L08.9 - Local infection of the skin and subcutaneous tissue, unspecified Status: Acute Plan: POD#1 , status post prosthesis removal of second metatarsal joint of right foot with bone biopsy and insertion of antibiotic, operation done by Dr. Dias Cont Vanc Cont Cefepime 1g IV q12h Blood cultures: No growth 2 day Wound cultures: Gram-negative bacteria pansensitive bacteria Await wound cultures from surgery Appreciate podiatry recommendations Appreciate infectious disease recommendation MRI of the right foot showed: Ulceration of the dorsum of the foot overlying the prosthesis and extensive cellulitis surrounding the second toe and second metatarsal. Focal marrow signal abnormalities adjacent to the proximal and distal aspect of the prosthesis. Unclear if related to postsurgical changes or early osteomyelitis. (2) Nutrition, metabolism, and development symptoms ICD Codes: R63.8 - Other symptoms and signs concerning food and fluid intake Plan: Fluids: tolerating PO Electrolytes: WNL, replete as needed Nutrition: regular diet DVT ppx : Davis Perez MD Aug 15, 2017 10:10
[2017-08-15] MEDS: CEFEPIME INJ 2,000 MG in SODIUM CHLORIDE 0.9% INJ 100 ML IV SCH ×2 (11:06→22:45)
[2017-08-15] MEDS ORDERED: PHARMACY ORDERED LAB ONE (11:45)
[2017-08-15 12:00] VITALS: BP 142/58; PULSE 75; RESP 19; TEMP 98.7; O2SAT 99
[2017-08-15 16:00] VITALS: BP 148/87; PULSE 80; RESP 20; TEMP 97.4; O2SAT 97
--- NOTE | 2017-08-15 17:08 | HHI.IDPN ---
Subjective Subjective Remarks doing ok sp surgery clx no growth so far path P Antibiotics cefpeime vanco Allergies: Coded Allergies: No Known Allergies (Unverified , 08/12/17) Objective . Vital Signs Date Time Temp Pulse Resp B/P (MAP) Pulse Ox O2 Delivery O2 Flow Rate FiO2 08/15/17 16:00 97.4 80 20 148/87 (107) 97 08/15/17 12:00 98.7 75 19 142/58 (86) 99 08/15/17 08:00 97.4 77 20 140/87 (104) 97 08/15/17 00:23 96.8 80 20 137/90 (106) 98 08/14/17 20:00 97.5 79 18 140/93 (109) 97 08/15/17 08/15/17 08/16/17 15:00 23:00 07:00 Intake Total 240 ml Balance 240 ml Intake Oral 240 ml . Laboratory Tests Test 08/14/17 09:50 White Blood Count 6.8 TH/MM3 Red Blood Count 4.87 MIL/MM3 Hemoglobin 15.0 GM/DL Hematocrit 43.1 % Mean Corpuscular Volume 88.6 FL Mean Corpuscular Hemoglobin 30.8 PG Mean Corpuscular Hemoglobin Concent 34.7 % Red Cell Distribution Width 13.4 % Platelet Count 148 TH/MM3 Mean Platelet Volume 9.6 FL Neutrophils (%) (Auto) 76.5 % Lymphocytes (%) (Auto) 16.1 % Monocytes (%) (Auto) 5.4 % Eosinophils (%) (Auto) 1.1 % Basophils (%) (Auto) 0.9 % Neutrophils # (Auto) 5.2 TH/MM3 Lymphocytes # (Auto) 1.1 TH/MM3 Monocytes # (Auto) 0.4 TH/MM3 Eosinophils # (Auto) 0.1 TH/MM3 Basophils # (Auto) 0.1 TH/MM3 CBC Comment DIFF FINAL Differential Comment Microbiology Date/Time Source Procedure Growth Status 08/12/17 18:10 Blood Peripheral Aerobic Blood Culture - Preliminary NO GROWTH IN 3 DAYS Resulted 08/12/17 18:10 Blood Peripheral Anaerobic Blood Culture - Preliminary NO GROWTH IN 3 DAYS Resulted 08/12/17 17:55 Blood Peripheral Aerobic Blood Culture - Preliminary NO GROWTH IN 3 DAYS Resulted 08/12/17 17:55 Blood Peripheral Anaerobic Blood Culture - Preliminary NO GROWTH IN 3 DAYS Resulted 08/14/17 08:00 Wound Toe Fungal Smear - Final NO FUNGAL ELEMENTS SEEN. Resulted 08/14/17 08:00 Wound Toe Fungal Culture Pending Resulted 08/14/17 08:00 Wound Toe Acid Fast Stain Pending Received 08/14/17 08:00 Wound Toe Mycobacterial Culture Pending Received 08/14/17 08:00 Wound Toe Gram Stain - Final Resulted 08/14/17 08:00 Wound Toe Wound Culture - Preliminary NO GROWTH IN 24 HOURS. Resulted 08/14/17 08:00 Wound Toe Fungal Smear - Final NO FUNGAL ELEMENTS SEEN. Resulted 08/14/17 08:00 Wound Toe Fungal Culture Pending Resulted 08/14/17 08:00 Wound Toe Acid Fast Stain Pending Received 08/14/17 08:00 Wound Toe Mycobacterial Culture Pending Received 08/14/17 08:00 Wound Toe Gram Stain - Final Resulted 08/14/17 08:00 Wound Toe Wound Culture - Preliminary NO GROWTH IN 24 HOURS. Resulted 08/12/17 18:11 Wound Foot Gram Stain - Final Complete 08/12/17 18:11 Wound Culture - Final Escherichia Hermannii Complete Imaging Last Impressions Foot X-Ray 08/14/17 0000 Signed Impressions: Service Date/Time: Monday, August 14, 2017 09:07 - CONCLUSION: Postsurgical changes in the 2nd digit. Mark Kaba MD Foot MRI 08/12/17 0000 Signed Impressions: Service Date/Time: Saturday, August 12, 2017 19:46 - CONCLUSION: 1. Postoperative placement of prosthesis across the second metatarsophalangeal joint. There is an ulceration on the dorsum of the foot overlying the prosthesis and there is fairly extensive cellulitis surrounding the second toe and second metatarsal. There are focal marrow signal abnormalities adjacent to the proximal and distal aspect of the prosthesis. It is unclear if this is related to postsurgical changes or early osteomyelitis. Baudilio Carrillo MD Physical Exam CONSTITUTIONAL/GENERAL: This is an adequately nourished patient, in no apparent distress. TUBES/LINES/DRAINS: SKIN: No jaundice, rashes, or lesions. Skin temperature appropriate. Not diaphoretic. MUSCULOSKELETAL: dressingin place, intact no ascending lymphangitis or cellulitis Assessment & Plan Remarks Assessment and Plan Assessment and Plan Prosthetic joint infection, osteomyelitis R foot, aw 2nd MT joint prosthesis - growing Ec.coli villalobos S REC's: cont current abx will folow path, clx - If nothing else grows and clx not cw [employer] will, d/c on oral Levaquine., o/w will adjust abx per clx and path report Alexandra James MD Aug 15, 2017 17:08
[2017-08-15 20:00] VITALS: BP 121/85; PULSE 75; RESP 20; TEMP 95.5; O2SAT 95
[2017-08-15] MEDS: ACETAMINOPHEN/HYDROcodone 325 MG/5 MG TAB PO PRN (22:44)
[2017-08-16] VITALS: BP 126/75; PULSE 70; RESP 20; TEMP 96.5; O2SAT 93
[2017-08-16] MEDS: VANCOMYCIN INJ 1,500 MG in SODIUM CHLORID 0.9% 500 ML INJ 500 ML IV SCH ×3 (00:23→23:39)
[2017-08-16 08:00] VITALS: BP 126/86; PULSE 86; RESP 20; TEMP 97.3; O2SAT 97
[2017-08-16] MEDS: CETIRIZINE HCL 10 MG TAB PO SCH (08:10)
[2017-08-16] MEDS: SODIUM CHLORIDE 0.9% FLUSH 10 ML FLUSH IV FLUSH SCH ×2 (08:10→22:55)
[2017-08-16 09:26] LABS: AUTOMATED NEUTROPHIL # 5.1 TH/MM3 (1.8-7.7); BASOPHIL # 0.1 TH/MM3 (0-0.2); BASOPHIL % 0.8 % (0.0-2.0); EOSINOPHIL # 0.2 TH/MM3 (0-0.4); EOSINOPHIL % 2.2 % (0.0-4.0); HEMATOCRIT 43.5 % (39.0-51.0); HEMOGLOBIN 15.4 GM/DL (13.0-17.0); LYMPH % 18.1 % (9.0-44.0); LYMPHOCYTE # 1.3 TH/MM3 (1.0-4.8); MEAN CELL VOLUME 87.8 FL (80.0-100.0); MEAN CORPUSCULAR HGB CONC 35.3 % (32.0-36.0); MEAN PLATELET VOLUME 9.4 FL (7.0-11.0); MONO % 7.8 % (0.0-8.0); MONOCYTE # 0.6 TH/MM3 (0-0.9); NEUT % 71.1 % (16.0-70.0); PLATELET COUNT 157 TH/MM3 (150-450); RED BLOOD COUNT 4.95 MIL/MM3 (4.50-5.90); RED CELL DISTRIBUTION WIDTH 13.4 % (11.6-17.2); WHITE BLOOD COUNT 7.2 TH/MM3 (4.0-11.0)
[2017-08-16 09:50] LABS: BICARBONATE 24.5 MEQ/L (21.0-32.0); CALCIUM 9.2 MG/DL (8.5-10.1); CREATININE 0.82 MG/DL (0.60-1.30)
[2017-08-16] MEDS: CEFEPIME INJ 2,000 MG in SODIUM CHLORIDE 0.9% INJ 100 ML IV SCH ×2 (10:35→22:54)
[2017-08-16 12:00] VITALS: BP 140/86; PULSE 90; RESP 20; TEMP 97.4; O2SAT 95
--- NOTE | 2017-08-16 14:05 | HHI.FPPN ---
Subjective Remarks Patient seen and examined this morning. No acute events overnight. Patient states that pain is well-controlled. Patient tolerating po. She had 1 bowel movement this morning. Denies chest pain, shortness of breath, nausea vomiting, fever or chills. Objective Vitals Vital Signs Date Time Temp Pulse Resp B/P (MAP) Pulse Ox O2 Delivery O2 Flow Rate FiO2 08/16/17 08:00 97.3 86 20 126/86 (99) 97 08/16/17 00:00 96.5 70 20 126/75 (92) 93 08/15/17 20:00 95.5 75 20 121/85 (97) 95 08/15/17 16:00 97.4 80 20 148/87 (107) 97 I/O 08/15/17 08/15/17 08/15/17 08/16/17 08/16/17 08/16/17 07:00 15:00 23:00 07:00 15:00 23:00 Intake Total 780 ml 240 ml 1300 ml 600 ml 240 ml Output Total 900 ml Balance 780 ml 240 ml 400 ml 600 ml 240 ml Intake Oral 780 ml 240 ml 800 ml 240 ml IV Total 500 ml 600 ml Output Urine Total 900 ml # Voids 4 # Bowel Movements 1 Result Diagram: 08/16/17 0834 08/16/17 0834 Objective Remarks GENERAL: This is a well-nourished, well-developed patient, in no apparent distress. SKIN: No rashes, Cool and dry. Discoloration along medial aspect left leg, chronic per patient CARDIOVASCULAR: Normal S1-S2 without murmurs, gallops, or rubs. RESPIRATORY: Clear to auscultation. Breath sounds equal bilaterally. No wheezes , rales, or rhonchi. GASTROINTESTINAL: Abdomen soft, non-tender, nondistended. Positive bowel sounds. No masses. No hepatosplenomegaly. MUSCULOSKELETAL: Extremities without clubbing, cyanosis, or edema. No calf tenderness BL. Right foot bandaged in boot. Patient is able to wiggle his toes with 4-5 out of 10 pain. Sensation intact. NEUROLOGICAL: Awake and alert. Motor and sensory grossly within normal limits. Normal speech. A/P Assessment and Plan Patient is a 46-year-old male with past medical history arthritis and BL venous insufficiency who presented to the ED due to right foot wound infection. Postop day #2 from right foot prothesis joint removal Discharge Planning D/c after ID recs, will likely need PICC line Problem List: (1) Foot infection ICD Codes: L08.9 - Local infection of the skin and subcutaneous tissue, unspecified Status: Acute Plan: POD#2, status post prosthesis removal of second metatarsal joint of right foot with bone biopsy and insertion of antibiotic, operation done by Dr. Dias -MRI of the right foot showed: Ulceration of the dorsum of the foot overlying the prosthesis and extensive cellulitis surrounding the second toe and second metatarsal. Focal marrow signal abnormalities adjacent to the proximal and distal aspect of the prosthesis. Unclear if related to postsurgical changes or early osteomyelitis. Cont Vanc Cont Cefepime 1g IV q12h Blood cultures: No growth 4 days Wound cultures: Gram-negative bacteria pansensitive bacteria wound cultures from surgery, Appreciate podiatry recommendations Appreciate infectious disease recommendation -Continue current antibiotics, follow-up pathology, patient will be okay to discharge on oral Levaquin if no growth on cx and on acid fast stain Bone biopsy and bone culture taken during surgery: No growth seen on acid-fast stain, fungal smear, Gram stain showing rare growth normal skin candice and no organisms seen. Pathology report pending (2) Nutrition, metabolism, and development symptoms ICD Codes: R63.8 - Other symptoms and signs concerning food and fluid intake Plan: Fluids: tolerating PO Electrolytes: WNL, replete as needed Nutrition: regular diet DVT ppx : Aiyana Abarca MD, R1 Aug 16, 2017 14:05
[2017-08-16 16:00] VITALS: BP 133/86; PULSE 82; RESP 20; TEMP 97.3; O2SAT 98
[2017-08-16 20:00] VITALS: BP 136/91; PULSE 74; RESP 18; TEMP 99.1; O2SAT 95
[2017-08-16] MEDS: ACETAMINOPHEN/HYDROcodone 325 MG/5 MG TAB PO PRN (23:40)
[2017-08-17 00:42] VITALS: BP 140/87; PULSE 75; RESP 18; TEMP 98.2; O2SAT 98
--- NOTE | 2017-08-17 07:15 | PD.POD ---
Subjective Pain score: 2 Remarks Doing well ready to go home Past Med/Surg/Social History Social History Smoking Status: Former Smoker Objective Vital Signs Vital Signs Date Time Temp Pulse Resp B/P (MAP) Pulse Ox O2 Delivery O2 Flow Rate FiO2 08/17/17 00:42 98.2 75 18 140/87 (104) 98 08/16/17 20:00 99.1 74 18 136/91 (106) 95 08/16/17 16:00 97.3 82 20 133/86 (102) 98 08/16/17 12:00 97.4 90 20 140/86 (104) 95 08/16/17 08:00 97.3 86 20 126/86 (99) 97 Coded Allergies: No Known Allergies (Unverified , 08/12/17) Medications and IVs Administered Medications Medications (Trade) Dose Ordered Sig/Ron Route PRN Reason Start Time Stop Time Status Last Admin Dose Admin Sodium Chloride (NS Flush) 2 ml UNSCH PRN IV FLUSH FLUSH AFTER USING IV ACCESS 08/12/17 21:30 08/12/17 23:23 Sodium Chloride (NS Flush) 2 ml BID IV FLUSH 08/13/17 09:00 08/16/17 22:55 Cetirizine HCl (ZyrTEC) 10 mg DAILY PO 08/12/17 21:45 08/16/17 08:10 Cefepime HCl 2000 mg/Sodium Chloride 100 ml @ 200 mls/hr Q12H IV 08/13/17 10:00 08/16/17 22:54 Vancomycin HCl 1500 mg/Sodium Chloride 515 ml @ 257.5 mls/ hr Q12H IV 08/13/17 12:00 08/16/17 23:39 Acetaminophen/ Hydrocodone Bitart (Arpin 5-325 Mg) 1 tab Q4H PRN PO PAIN SCALE 1 TO 6 08/14/17 09:00 08/16/17 23:40 Other Results [facility] DEPARTMENT OF PATHOLOGY [address], [place] [address] [email or web address] PATHOLOGY REPORT Patient: GORDY APPLE Specimen #: [id number] Page 2 of 2 [facility] DEPARTMENT OF PATHOLOGY [address], [place] [address] [email or web address] PATHOLOGY REPORT Page 1 of 2 CLINICAL HISTORY: Osteomyelitis right foot. TISSUE: 1. IMPLANT RIGHT FOOT 2. SECOND RIGHT METATARSAL BONE 3. SECOND RIGHT DIGIT BONE GROSS DESCRIPTION: #1- 3.5 x 1.5 x 0.7 cm in overall dimension pliable opacified cross shaped portion of material. No tissue is identified. No sections are submitted. #2- 0.4 x 0.3 x 0.2 cm gritty bledsoe fragment of tissue. TE 1 after decalcification. #3- 0.4 x 0.3 x 0.1 cm gritty bledsoe fragment of tissue. TE 1 after decalcification. DXN/sarbjit FINAL DIAGNOSIS: #1- IMPLANT RIGHT FOOT, EXCISION: PLIABLE FOREIGN MATERIAL, GROSS ONLY. #2- SECOND RIGHT METATARSAL BONE, BIOPSY: REACTIVE BONE WITH CHRONICALLY INFLAMED AND FIBROTIC MARROW, AND FOCAL BONE NECROSIS, SUSPICIOUS FOR CHRONIC OSTEOMYELITIS. #3- SECOND RIGHT DIGIT BONE, BIOPSY: PARTIALLY NECROTIC AND FRAGMENTED BONE WITH CHRONICALLY INFLAMED MARROW, CONSISTENT WITH CHRONIC OSTEOMYELITIS. LJS/sarbjit CPT CODES: 81604 x 2; 68003; 98792 x 2 Report Electronically Signed BLANQUITA DE LEON MD, PATHOLOGIST Exam-Podiatry Remarks Right foot incision with minimal serosanguineous drainage Physical Exam Remarks Report Electronically Signed BLANQUITA DE LEON MD, PATHOLOGIST Assessment & Plan Diagnosis: (1) Osteomyelitis ICD Codes: M86.9 - Osteomyelitis, unspecified Status: Acute (2) Foot infection ICD Codes: L08.9 - Local infection of the skin and subcutaneous tissue, unspecified Status: Acute A/P Status post removal of implant and debridement right second MPJ postop day 3 Bandage changed, OK to FU out pt once ID rec's for ABX, see orders Problem Qualifiers (1) Osteomyelitis: Qualified Codes: M86.9 - Osteomyelitis, unspecified Devon Kelly DPM Aug 17, 2017 07:15
[2017-08-17 08:00] VITALS: BP 138/94; PULSE 92; RESP 17; TEMP 96.4; O2SAT 95
--- NOTE | 2017-08-17 08:04 | HHI.FF ---
Face to Face Verification Diagnosis: (1) History of foot operation (2) Foot infection (3) Osteomyelitis Physical Therapy Order: Evaluate and Treat, Improve ambulation, Strength and gait training Home Health Nursing Order: Wound care and dressing changes (recent amputation) I have seen patient Von West on 08/17/17. My clinical findings support the need for the requested home health care services because: Ltd mobility - disease progression High risk of falls I certify that my clinical findings support that this patient is homebound because: Post-op weakness Unsteady gait/balance Davis Conrad MD Aug 17, 2017 08:04 Russel Santiago MD, R3 Aug 17, 2017 11:02
[2017-08-17] MEDS: CEFEPIME INJ 2,000 MG in SODIUM CHLORIDE 0.9% INJ 100 ML IV SCH (09:10)
[2017-08-17] MEDS: CETIRIZINE HCL 10 MG TAB PO SCH (09:10)
[2017-08-17] MEDS: SODIUM CHLORIDE 0.9% FLUSH 10 ML FLUSH IV FLUSH SCH (09:10)
--- NOTE | 2017-08-17 09:46 | HHI.PR ---
Addendum to Inpatient Note Additional Information path cw chronic osteo dw Dr De La Vega oral levaquine x 8 wks f/u CBC, CMP every 1-2 weeks Alexandra James MD Aug 17, 2017 09:46
[2017-08-17] MEDS ORDERED: LEVA750T9 PO (09:47)
--- NOTE | 2017-08-17 11:09 | HHI.FPPN ---
Subjective Remarks Patient seen and examined this morning. Temperature 96.4, pulse 92, respiratory rate 17, blood pressure 138/94, pulse ox 95 on room air. He reports that the pain in his foot is tolerable. He states that he is looking forward to going home and getting out of the hospital. He is worried about managing his outpatient treatments. He is hoping to do p.o. antibiotics. Per ID recommendations he will be able to go home on p.o. Levaquin. As an outpatient he will require wound changes for the post podiatry procedure. No major complaints or concerns today. Objective Vitals Vital Signs Date Time Temp Pulse Resp B/P (MAP) Pulse Ox O2 Delivery O2 Flow Rate FiO2 08/17/17 08:00 96.4 92 17 138/94 (109) 95 08/17/17 00:42 98.2 75 18 140/87 (104) 98 08/16/17 20:00 99.1 74 18 136/91 (106) 95 08/16/17 16:00 97.3 82 20 133/86 (102) 98 08/16/17 12:00 97.4 90 20 140/86 (104) 95 I/O 08/16/17 08/16/17 08/16/17 08/17/17 08/17/17 08/17/17 07:00 15:00 23:00 07:00 15:00 23:00 Intake Total 600 ml 240 ml 1200 ml Output Total 1200 ml Balance 600 ml 240 ml 0 ml Intake Oral 240 ml 1200 ml IV Total 600 ml Output Urine Total 1200 ml # Bowel Movements 1 Result Diagram: 08/16/17 0834 08/16/17 0834 Imaging Last Impressions Foot X-Ray 08/14/17 0000 Signed Impressions: Service Date/Time: Monday, August 14, 2017 09:07 - CONCLUSION: Postsurgical changes in the 2nd digit. Mark Kaba MD Foot MRI 08/12/17 0000 Signed Impressions: Service Date/Time: Saturday, August 12, 2017 19:46 - CONCLUSION: 1. Postoperative placement of prosthesis across the second metatarsophalangeal joint. There is an ulceration on the dorsum of the foot overlying the prosthesis and there is fairly extensive cellulitis surrounding the second toe and second metatarsal. There are focal marrow signal abnormalities adjacent to the proximal and distal aspect of the prosthesis. It is unclear if this is related to postsurgical changes or early osteomyelitis. Baudilio Carrillo MD Objective Remarks GENERAL: This is a well-nourished, well-developed patient, in no apparent distress. SKIN: No rashes, Cool and dry. Discoloration along medial aspect left leg, chronic per patient CARDIOVASCULAR: Normal S1-S2 without murmurs, gallops, or rubs. RESPIRATORY: Clear to auscultation. Breath sounds equal bilaterally. No wheezes , rales, or rhonchi. GASTROINTESTINAL: Abdomen soft, non-tender, nondistended. Positive bowel sounds. No masses. No hepatosplenomegaly. MUSCULOSKELETAL: Extremities without clubbing, cyanosis, or edema. No calf tenderness BL. Right foot bandaged in boot. Patient is able to wiggle his toes with 4-5 out of 10 pain. Sensation intact. NEUROLOGICAL: Awake and alert. Motor and sensory grossly within normal limits. Normal speech. Procedures 08/14/17: Right foot removal of implant and bone biopsy Medications and IVs Current Medications Medications (Trade) Dose Ordered Sig/Ron Route Start Time Stop Time Status Last Admin (NS Flush) 2 ml UNSCH PRN IV FLUSH 08/12/17 21:30 08/12/17 23:23 (NS Flush) 2 ml BID IV FLUSH 08/13/17 09:00 08/17/17 09:10 (Narcan Inj) 0.4 mg UNSCH PRN IV PUSH 08/12/17 21:30 (Milk Of Magnesia Liq) 30 ml Q12H PRN PO 08/12/17 21:30 (Senokot) 17.2 mg Q12H PRN PO 08/12/17 21:30 (Dulcolax Supp) 10 mg DAILY PRN RECTAL 08/12/17 21:30 (Lactulose Liq) 30 ml DAILY PRN PO 08/12/17 21:30 (ZyrTEC) 10 mg DAILY PO 08/12/17 21:45 08/17/17 09:10 Cefepime HCl 2000 mg/Sodium Chloride 100 ml @ 200 mls/hr Q12H IV 08/13/17 10:00 08/17/17 09:10 Vancomycin HCl 1500 mg/Sodium Chloride 515 ml @ 257.5 mls/ hr Q12H IV 2/17/18 12:00 08/16/17 23:39 Pharmacy Profile Note 0 ml @ 0 mls/hr UNSCH OTHER 08/13/17 09:45 ([place] 5-325 Mg) 1 tab Q4H PRN PO 08/14/17 09:00 08/16/17 23:40 (Morphine Inj) 2 mg Q4H PRN IV PUSH 08/14/17 09:00 A/P Assessment and Plan Patient is a 46-year-old male with past medical history arthritis and BL venous insufficiency who presented to the ED due to right foot wound infection. Postop day #3 from right foot prothesis joint removal Discharge Planning D/c today on p.o. Levaquin Problem List: (1) Foot infection ICD Codes: L08.9 - Local infection of the skin and subcutaneous tissue, unspecified Status: Acute Plan: POD#3, status post prosthesis removal of second metatarsal joint of right foot with bone biopsy and insertion of antibiotic, operation done by Dr. Dias -MRI of the right foot showed: Ulceration of the dorsum of the foot overlying the prosthesis and extensive cellulitis surrounding the second toe and second metatarsal. Focal marrow signal abnormalities adjacent to the proximal and distal aspect of the prosthesis. Unclear if related to postsurgical changes or early osteomyelitis. Cont Vanc Cont Cefepime 1g IV q12h Upon discharge today we will start p.o. Levaquin Blood cultures: No growth 4 days Wound cultures: Gram-negative bacteria pansensitive bacteria wound cultures from surgery, Appreciate podiatry recommendations Appreciate infectious disease recommendation Bone biopsy and bone culture taken during surgery: No growth seen on acid-fast stain, fungal smear, Gram stain showing rare growth normal skin candice and no organisms seen. Pathology report pending (2) Nutrition, metabolism, and development symptoms ICD Codes: R63.8 - Other symptoms and signs concerning food and fluid intake Plan: Fluids: tolerating PO Electrolytes: WNL, replete as needed Nutrition: regular diet DVT ppx : Russel Valentin MD, R3 Aug 17, 2017 11:09
[2017-08-17] MEDS ORDERED: HYDR-3516 PO (11:35)
[2017-08-17] MEDS: VANCOMYCIN INJ 1,500 MG in SODIUM CHLORID 0.9% 500 ML INJ 500 ML IV SCH (11:52)
--- NOTE | 2017-08-17 13:45 | HHI.DS ---
Discharge Summary Admission Date Aug 12, 2017 at 19:47 Admitting Diagnosis right foot osteomyelitis, failed outpatient tx (1) Foot infection Plan: POD#3, status post prosthesis removal of second metatarsal joint of right foot with bone biopsy and insertion of antibiotic, operation done by Dr. Dias -MRI of the right foot showed: Ulceration of the dorsum of the foot overlying the prosthesis and extensive cellulitis surrounding the second toe and second metatarsal. Focal marrow signal abnormalities adjacent to the proximal and distal aspect of the prosthesis. Unclear if related to postsurgical changes or early osteomyelitis. Cont Vanc Cont Cefepime 1g IV q12h Upon discharge today we will start p.o. Levaquin Blood cultures: No growth 4 days Wound cultures: Gram-negative bacteria pansensitive bacteria wound cultures from surgery, Appreciate podiatry recommendations Appreciate infectious disease recommendation Bone biopsy and bone culture taken during surgery: No growth seen on acid-fast stain, fungal smear, Gram stain showing rare growth normal skin candice and no organisms seen. Pathology report pending ICD Codes: L08.9 - Local infection of the skin and subcutaneous tissue, unspecified Status: Acute (2) Nutrition, metabolism, and development symptoms Plan: Fluids: tolerating PO Electrolytes: WNL, replete as needed Nutrition: regular diet DVT ppx : SCDs ICD Codes: R63.8 - Other symptoms and signs concerning food and fluid intake Procedures 08/14/17: Right foot removal of implant and bone biopsy Brief History Patient is a 46-year-old male with past medical history arthritis and BL venous insufficiency who presented to the ED due to right foot wound infection. at bedside. Patient stated that he had surgery on April 14, [address] Dias for prosthetic replacement of his second metatarsal joint on Right foot. He has been following with Dr. Dias since the surgery. He reports that on June 10 the suture began to open and around this time he began developing pain in the area. Patient rates pain 5/10 and describes as a throbbing pain with intermittent swelling of dorsum. Pain is worsen with weight bearing activities. He has not taken medication to help with pain. Patient stated that today he had an appointment with Dr. Dias and was told that the wound was infected. Due to concern for possible osteomyelitis Dr. Dias advised him to come to emergency room for further evaluation. Denies fever, chills, numbness/tingling of extremities. Endorses pus and foul smell emanating from foot wound. CBC/BMP: 08/16/17 0834 08/16/17 0834 Significant Findings Laboratory Tests Test 08/15/17 11:45 08/16/17 08:34 Vancomycin Level Trough 15.8 MCG/ML (5.0-10.0) Neutrophils (%) (Auto) 71.1 % (16.0-70.0) Random Glucose 109 MG/DL (74-106) PE at Discharge GENERAL: This is a well-nourished, well-developed patient, in no apparent distress. SKIN: No rashes, Cool and dry. Discoloration along medial aspect left leg, chronic per patient CARDIOVASCULAR: Normal S1-S2 without murmurs, gallops, or rubs. RESPIRATORY: Clear to auscultation. Breath sounds equal bilaterally. No wheezes , rales, or rhonchi. GASTROINTESTINAL: Abdomen soft, non-tender, nondistended. Positive bowel sounds. No masses. No hepatosplenomegaly. MUSCULOSKELETAL: Extremities without clubbing, cyanosis, or edema. No calf tenderness BL. Right foot bandaged in boot. Patient is able to wiggle his toes with 4-5 out of 10 pain. Sensation intact. NEUROLOGICAL: Awake and alert. Motor and sensory grossly within normal limits. Normal speech. Pt Condition on Discharge: Stable Discharge Disposition: Disch w/ Home Health Serv Discharge Instructions DIET: Follow Instructions for: As Tolerated, No Restrictions Activities you can perform: See Additionl Instruction Other Activity Instructions: per podiatry instructions Aiyana Resendez MD, R1 Aug 17, 2017 13:45
== END 2017-08-17 12:44 | disposition home health service (06) | DRG 478 ==
LOC: NEPC 17:01 → NEDA 19:47 → N07B 22:08
PROVIDERS: ADMIT Family Medicine; ATTEND Family Medicine
PROC: 3E0V329 Introduction of Other Anti-infective into Bones, Percutaneous Approach (ICD-10-PCS; 2017-08-12)
PROC: 0SP Lower Joints, Removal (ICD-10-PCS; 2017-08-14)
PROC: 0QBQ0ZX Excision of Right Toe Phalanx, Open Approach, Diagnostic (ICD-10-PCS; 2017-08-14)
PROC: 0QBL0ZX Excision of Right Tarsal, Open Approach, Diagnostic (ICD-10-PCS; principal; 2017-08-14 08:12)
DX: T84.59XA Infection and inflammatory reaction due to other internal joint prosthesis, initial encounter (principal); M86.671 Other chronic osteomyelitis, right ankle and foot; F12.90 Cannabis use, unspecified, uncomplicated; I87.2 Venous insufficiency (chronic) (peripheral); Z87.891 Personal history of nicotine dependence
CPT/HCPCS: 73630; 73720; 80048; 80202; 82948; 83735; 85025; 85610; 85652; 85730; 86140; 86403; 87015; 87040; 87070; 87077; 87102; 87116; 87176; 87186; 87205; 87206; 88300; 88304; 88307; 88311; 96365; 96367; A9579; J0692; J1100; J1580; J2250; J2405; J2543; J3010; J3370; J7030; J7040; J7050; L3260

== ENCOUNTER 2017-08-19 13:00 | Day surgery (SDC) | payer OTHER ==
[~2017-08-19 13:00] MED LIST: CETI10TA71 PO; HYDR-3516 PO; LEVA750T9 PO
[2017-08-19 13:40] VITALS: BP 151/87; PULSE 96; RESP 18; TEMP 98.1; O2SAT 99
[2017-08-19 14:45] VITALS: BP 157/109; PULSE 92; RESP 18; TEMP 99; O2SAT 95
--- NOTE | 2017-08-19 15:12 | RADRPT ---
EXAM DATE/TIME: 08/19/2017 15:49 [facility] COMPARISON: MRI FOOT RIGHT W & W/O CONTRAST, August 12, 2017, 19:46. FOOT RIGHT COMPLETE ([id number]), July 282017, 9:07. INDICATIONS : Patient with right foot osteomyelitis in need of PICC line placement for antibiotics. MEDICAL HISTORY : Right knee osteoarthritis, Bilateral venous insufficiency SURGICAL HISTORY : Left bicep tendon repair, Right foot 2nd metatarsal prosthetic replacement ENCOUNTER: Initial ACUITY: 2 months PAIN SCORE: 0/10 FLUORO TIME: 0.12 minutes IMAGE SERIES: 1 ACCESS: Right basilic vein MEDICATION(S): 1.) 200 units Heparin IV DEVICE(S): 1.) 4 Syriac single lumen 38 cm Xcela Power PICC PROCEDURE : 1. Ultrasound guidance for venous catheterization. 2. Fluoroscopic guidance. 3. Ultrasound & fluoroscopic guided central venous Power PICC line placement. The risks, benefits and alternatives to the procedure were explained and verbal and written consent w as obtained. The site was prepped in sterile fashion. Full sterile technique was used, including ca p, mask, sterile gloves and gown and a large sterile sheet. Hand hygiene and 2% chlorhexidine prep w as utilized per protocol for cutaneous antisepsis with appropriate dry time for site. Sterile gel a nd sterile probe cover were utilized for ultrasound guidance. The skin and subcutaneous tissues wer e infiltrated with local anesthetic solution. Under direct ultrasound guidance, a suitable vein was accessed and a measuring guidewire was introduc ed and positioned in the central venous system. The ultrasound images depicting access guidance were saved and stored to PACS for permanent record. A Power Injectable PICC line was cut to prescribed length and introduced, positioned with tip at the cavoatrial junction level. The line was flushed and secured per protocol. CONCLUSION: 1. Uncomplicated central venous Power PICC line placement. 2. The PICC line can be used immediately. Mark Chauhan Jr., MD on August 19, 2017 at 15:05 Board Certified Radiologist. This report was verified electronically.
--- NOTE | 2017-08-19 15:42 | PD.RAD ---
Radiology Post PICC Prog Note Pre Procedure Diagnosis: (1) Osteomyelitis Post Procedure Diagnosis: (1) Osteomyelitis Procedure: Right PICC line placement Procedure Date: Aug 19, 2017 Supervising Radiologist Mark Chauhan JR Proceduralist/Assist: Clair Balderas RT(R)() Device Side: Right Armenian: 4 single lumen cm: 38 Plan of Activity Patient to Unit: ROPU Patient Condition: Good PICC line can be used immediately Jr. Chauhan Thomas Justin MD Aug 19, 2017 15:42
[2017-08-19] MEDS ORDERED: SODIUM CHLORIDE 0.9% FLUSH 10 ML FLUSH IVF PRN ×2 (15:45)
[2017-08-19] MEDS ORDERED: cefTRIAXone 2,000 MG/NS 100 ML IV ONE ×2 (16:00)
[2017-08-20] MEDS ORDERED: SODIUM CHLORIDE 0.9% FLUSH 10 ML FLUSH IVF SCH (09:00)
== END 2017-08-19 16:39 | disposition home or self-care (01) ==
LOC: HROP 13:00 → HRIP 13:01 → HROP 16:39
PROVIDERS: ATTEND Internal Medicine Infectious Disease
DX: M86.671 Other chronic osteomyelitis, right ankle and foot (principal); M19.071 Primary osteoarthritis, right ankle and foot; I87.2 Venous insufficiency (chronic) (peripheral)
CPT/HCPCS: 36569; 76937; 77001; 96365; C1751; J0696; J1642